=== PATIENT | male | born 2005 | race Caucasian/White ===

== ENCOUNTER 2023-07-30 06:35 | Day surgery (SDC) | payer BC ==
[2023-07-30 07:17] VITALS: RESP 18
[2023-07-30] MEDS: Lactated Ringers 1,000 ML IV SCH (07:19)
[2023-07-30] MEDS ORDERED: Lactated Ringers 1,000 ML IV ONE (07:32)
[2023-07-30] MEDS ORDERED: Versed 2 MG/2 ML Injection ONE (07:50)
[2023-07-30] MEDS ORDERED: DIPRIVAN 200 MG/20 ML IV ONE (07:50)
[2023-07-30] MEDS ORDERED: Xylocaine-Mpf 2% 5 Ml Vial ONE (07:50)
[2023-07-30 09:02] VITALS: TEMP 97.7; O2SAT 100
[2023-07-30 09:08] VITALS: BP 110/66; PULSE 58
--- NOTE | 2023-07-30 10:30 | OP ---
SURGERY DATE/TIME: 07/30/2023 0759 PREOPERATIVE DIAGNOSIS: Epigastric pain. POSTOPERATIVE DIAGNOSIS: Gastritis. PROCEDURE: Esophagogastroduodenoscopy with cold forceps biopsy. SURGEON: Dr. Umaña. ANESTHESIA: Medications were given by the anesthesia department. BRIEF HISTORY: The patient is a 18-year-old white male patient who has been having problems over the past three weeks with epigastric pain and some diarrhea problems. He reports it has been getting a little bit better over the last week. The patient was seen in the ER where he was given Zofran and in the [facility] where they gave him some Protonix. He reports that over the last week that pain was getting better but the patient wished to have evaluation done. We did describe with him the risks of the procedure including the risk of perforation, phlebitis, untoward reaction to medication, bleeding and missed lesions. The patient verbalized his understanding and desired to have the procedure performed. DESCRIPTION OF PROCEDURE: The patient was given the medications by the anesthesia department. He had continuous pulse oximetry, ECG monitoring and intermittent blood pressure monitoring during the examination. He was placed in the left lateral decubitus position. A bite block was placed and the flexible Olympus gastroscope was used to intubate the oropharynx. A view of the larynx was obtained and was normal. The scope was easily introduced in the esophagus, which appeared to be normal throughout its length. The stomach was entered where normal gastric rugal folds were seen and these distended nicely with insufflation of air. The scope was passed along the greater curvature of the stomach to the antrum. The pylorus was encountered and intubated. The duodenum inspected and found to be normal. The scope is withdrawn towards the stomach. A retroflex view was obtained of the lesser curvature, fundus and cardia regions of the stomach and these appeared to be essentially normal. The scope was then redirected towards the gastric antrum and biopsies were obtained to rule out the presence of Helicobacter pylori-type organisms. No other mucosal lesions were noted. The scope was then removed from the patient who tolerated the procedure well and was sent back to outpatient recovery in good condition.
== END 2023-07-30 09:14 | disposition home or self-care (01) ==
LOC: SDC 06:35 → EDSTATUS 16:33
PROVIDERS: ATTEND Family Medicine
DX: K29.70 Gastritis, unspecified, without bleeding (principal); R10.13 Epigastric pain
CPT/HCPCS: J2250; J2704